=== PATIENT | female | born 1950 | race Caucasian/White ===

== ENCOUNTER 2018-11-27 10:13 | Emergency (ER) | payer MEDICARE, BC ==
[2018-11-27 11:04] VITALS: BP 136/71
--- NOTE | 2018-11-27 12:26 | UC ---
Respiratory Complaint HPI - HPI Summary HPI Summary: Patient presents to urgent care reporting a progressive cough for the last 6 or 7 days. Patient states in September she was diagnosed with bronchitis. Patient states she was given antibiotics as well as Tessalon Perles. Patient states she improved but never got completely normal. Patient states just recently she started to get sick again. Patient states she is coughing yellow sputum. Patient without any fevers but states she has chills and fatigue. No nausea or vomiting. Patient with decreased appetite. Patient's been taking Mucinex and Tessalon Perles with little improvement. Patient's is also sick. Patient states she did get the flu vaccine this year. Patient states she called her doctor's office that were not able to see her. Patient without history of lung disease other than she's had PEs. Patient is on chronic anticoagulation and has not missed any doses. Patient's medications reviewed this visit. - History of Current Complaint Chief Complaint: UCRespiratory Stated Complaint: COUGH Time Seen by Provider: 11/27/18 12:20 Hx Obtained From: Patient Onset/Duration: Gradual Onset Severity Initially: Mild Severity Currently: Mild Pain Intensity: 0 Pain Scale Used: 0-10 Numeric - Allergies/Home Medications Allergies/Adverse Reactions: Allergies Allergy/AdvReac Type Severity Reaction Status Date / Time Sulfa (Sulfonamide Allergy Hives Verified 11/27/18 10:59 Antibiotics) Home Medications: Home Medications Atorvastatin* [Lipitor*] 80 mg PO DAILY 11/27/18 [History Confirmed 11/27/18] Benzonatate CAP* [Tessalon 100 MG CAP*] 100 mg PO TID PRN 11/27/18 [History Confirmed 11/27/18] Cholecalciferol TAB* [Vitamin D TAB*] 1,000 unit PO DAILY 11/27/18 [History Confirmed 11/27/18] Divalproex ER TAB(*) [Depakote ER TAB(*)] 250 mg PO BID 11/27/18 [History Confirmed 11/27/18] Losartan TAB* [Cozaar TAB*] 50 mg PO DAILY 11/27/18 [History Confirmed 11/27/18] Omeprazole CAP* [Prilosec CAP* 20 MG] 40 mg PO DAILY 11/27/18 [History Confirmed 11/27/18] [id number]/Iron Fum/Folic/Docusate [ 19] 1 tab PO DAILY 11/27/18 [History Confirmed 11/27/18] Rivaroxaban TAB(*) [Xarelto 20 mg] 20 mg PO DAILY 11/27/18 [History Confirmed ] Solifenacin Succinate [Vesicare] 10 mg PO DAILY 11/27/18 [History Confirmed ] Ursodiol CAP* [Actigall CAP 300 MG*] 300 mg PO BID 11/27/18 [History Confirmed 11/27/18] guaiFENesin [Mucinex] 600 mg PO Q12H 11/27/18 [History Confirmed 11/27/18] metFORMIN* [Glucophage 500 MG TAB *] 500 mg PO DAILY 11/27/18 [History Confirmed 11/27/18] PMH/Surg Hx/FS Hx/Imm Hx Respiratory History: Pulmonary Embolism - Surgical History Surgical History: Yes Surgery Procedure, Year, and Place: gallbladder removal 01/2018 - Family History Known Family History: Positive: Non-Contributory - Social History Occupation: Retired Lives: With Family Alcohol Use: None Substance Use Type: None Smoking Status (MU): Never Smoked Tobacco Review of Systems All Other Systems Reviewed And Are Negative: Yes Constitutional: Positive: Fever, Chills ENT: Positive: Sinus Congestion Respiratory: Positive: Shortness Of Breath, Cough, Other - wheeze Physical Exam - Summary Physical Exam Summary: Vital Signs Reviewed: Yes A+Ox3, no distress Eyes: Conjunctiva Clear, MARA. EOM intact and full ENT: Hearing grossly normal TM x 2 clear, turbinates mild inflammed, mmoist, uvula midline, no exudate, no erythema Neck: Positive: Supple Respiratory: Positive: coarse cough + rhonci left base scattered wheeze no retractions Cardiovascular: RRR nl s1, s2 no m/r CBT <2 sec abd soft + BS nt/nd no guarding, no distension Musculoskeletal Exam: GLORIA x 4 without difficulty Strength Intact, ROM Intact Neurological: Positive: Alert, + sensation throughout Psychological: Positive: Normal Response To Family Skin: Positive: no rash, no ecchymosis Triage Information Reviewed: Yes Vital Signs: Initial Vital Signs Temp 97.8 F 11/27/18 10:57 Pulse 77 11/27/18 10:57 Resp 16 11/27/18 10:57 BP 136/71 11/27/18 10:57 Pulse Ox 98 12/31/18 10:57 Diagnostic Evaluation - Laboratory O2 Sat by Pulse Oximetry: 98 - Radiology Radiology Interpretation Completed By: Radiologist - Patient Name: HALEY LICONA Medical Record#: [id number] Re-Evaluation - Re-Evaluation First Eval Re-Evaluation Time: 13:18 Change: Improved Comment: improved, less cough. reviewed CXR. will Rx doxy. pred. albuterol. hydrate. OTC cough suppressant. rf/u with pcp Respiratory Course/Dx - Course Course Of Treatment: Pt presents to with 6 days of cough and fatigue. Pt states poor sleep related to cough. Pt has been using mucinex and tessalon perles without improvement. Ptd enies fevers, chest pain. Pt with a h/o bronchitis in september and states feels similar. VSS. pt with coarse cough, scattered wheeze and rhonci left base. will check cxr. duoneb (pt has used MDI previously) and reassess - Differential Dx/Diagnosis Provider Diagnosis: Acute bronchitis Discharge - Sign-Out/Discharge Documenting (check all that apply): Patient Departure All imaging exams completed and their final reports reviewed: No Studies - Discharge Plan Condition: Stable Disposition: HOME Prescriptions: Albuterol HFA INHALER* [Ventolin HFA Inhaler*] 1 puff INH Q4H PRN #1 mdi PRN Reason: wheeze DOXYcycline CAP(*) [DOXYcycline 100MG CAP(*)] 100 mg PO BID #20 cap Inhaler, Assist Devices [Aerochamber Mv] 1 each PO Q4HR #1 spacer predniSONE TAB* [Deltasone 20 MG TAB*] 40 mg PO DAILY #10 tab Patient Education Materials: Acute Bronchitis (ED) Referrals: Lizandro Ramirez DO [Primary Care Provider] - Additional Instructions: -Take antibiotics and prednisone exactly as prescribed until gone -Use your albuterol puffer - 2 puffs every 4 hours for the next 2 days - then as needed -Stay well hydrated - avoid excess caffeine and all alcohol - Eat regular, healthy meals - Humidify the air in the room where you sleep - boil water, run a hot steam shower, vaporizer, cups of water by heat register - Okay to take over the counter decongestant and cough medication -- These infections are spread by secretions - do NOT share eating or drinking utensils - clean items you share with other people such as cell phones, computer mouse, TV remote, computer tablets,etc.. Once you have been antibiotics for 2 days, change your toothbrush and your pillowcase. - sleep with your head elevated on 2 pillows -Contact your doctor to arrange a follow-up appointment this week. Call your doctor, return here or go to the emergency department with any questions or concerns - Billing Disposition and Condition Condition: STABLE Disposition: Home
[2018-11-27] MEDS ORDERED: Albuterol/Ipratropium NEB.SOL* Albuterol 2.5 MG/Ipratropium 0.5 MG 3 ML INH ONE (12:42)
== END 2018-11-27 13:30 | disposition home or self-care (01) ==
LOC: UCCORT 10:13
DX: J20.9 Acute bronchitis, unspecified (principal); Z79.01 Long term (current) use of anticoagulants; I26.99 Other pulmonary embolism without acute cor pulmonale; Z88.2 Allergy status to sulfonamides
CPT/HCPCS: 71046; 99212; A9270-GY; G0463